=== PATIENT | female | born 1955 | race Two or more races ===

== ENCOUNTER 2017-11-06 10:36 | Emergency (ER) | payer OTHER ==
[~2017-11-06] VITALS: Ht 162.6 cm; Wt 65.8 kg
[~2017-11-06 10:36] MED LIST: AMOX1TAB12 PO; AVELOX ABC PAC400 MG PO; IPRATROPIUM0.2 MG/ML IH; ORPH100T PO; PULMICORT1 MG/2 ML IH; ZITHROMAX500 MG; [UNRECOGNIZED DRUG - OTHER] PO
[2017-11-06] MEDS ORDERED: TESSALON PERLE100 M1 PO (20:08)
[2017-11-06] MEDS ORDERED: PROMETHAZINE W118 ML PO (20:08)
[2017-11-06] MEDS ORDERED: ZITHROMAX500 MG PO (20:08)
== END 2017-11-06 20:57 | disposition home or self-care (01) ==
LOC: ER 10:36
DX: J18.9 Pneumonia, unspecified organism (principal); R05 Cough

== ENCOUNTER 2017-11-21 10:10 | Outpatient (CLI) | payer OTHER ==
[~2017-11-21 10:10] MED LIST changes: +PROMETHAZINE W118 ML PO; +TESSALON PERLE100 M1 PO; +ZITHROMAX500 MG PO
== END 2017-11-21 10:20 | disposition home or self-care (01) ==
LOC: LAB 10:10
DX: M32.9 Systemic lupus erythematosus, unspecified (principal); R91.1 Solitary pulmonary nodule; L93.2 Other local lupus erythematosus; M32.10 Systemic lupus erythematosus, organ or system involvement unspecified; J18.9 Pneumonia, unspecified organism

== ENCOUNTER 2017-12-01 13:53 | Emergency (ER) | payer OTHER ==
[~2017-12-01] VITALS: Ht 157.5 cm; Wt 63.5 kg
== END 2017-12-01 20:47 | disposition home or self-care (01) ==
LOC: ER 13:53
DX: R09.1 Pleurisy (principal)

== ENCOUNTER 2017-12-05 10:20 | Outpatient (CLI) | payer OTHER | END 2017-12-05 11:48 | disposition home or self-care (01) | LOC: LAB 10:20 | DX: Z21 Asymptomatic human immunodeficiency virus [HIV] infection status (principal); J18.9 Pneumonia, unspecified organism; D68.8 Other specified coagulation defects; D64.9 Anemia, unspecified; I82.409 Acute embolism and thrombosis of unspecified deep veins of unspecified lower extremity ==

== ENCOUNTER 2018-04-03 13:37 | Outpatient (CLI) | payer OTHER | END 2018-04-03 17:00 | disposition home or self-care (01) | LOC: TOM 13:37 | DX: G45.8 Other transient cerebral ischemic attacks and related syndromes (principal) ==